=== PATIENT | female | born 1955 | race Two or more races ===

== ENCOUNTER 2025-04-21 09:06 | Inpatient (IN) | payer OTHER ==
[~2025-04-21] VITALS: Ht 165.1 cm; Wt 53.4 kg
--- NOTE | 2025-04-21 10:46 | ED.PDOC ---
History of Present Illness HPI Comments 69-year-old female presents to the ER with a chief complaint of abdominal pain. Patient reports on having pressure-like abdominal pain associated with the abdominal distention for the past two months. Patient's PCP for GI is Dr. Malone. Denies any other symptoms at this time. Denies chills, fever, N/V/D, SOB, CP. No other associated symptoms, modifiers, recent injuries or sick contacts present at this time. Chief Complaint: Abdominal Pain Time Seen by MD: 10:30 Reviewed Notes: Nurses Notes, Medications, Allergies Allergies: Uncoded Allergies: SULFA (Allergy, Unknown, 04/21/25) Home Meds Reported Medications Ursodiol (Ursodiol) 300 Mg Cap, 300 MG PO, CAP 04/22/25 Mesalamine (Apriso) 0.375 Gm Cap, 4 CAP PO DAILY, #120 CAP 3 Refills 04/22/25 Information Source: Patient Mode of Arrival: Ambulatory Severity: Moderate Timing: Months Duration: Since onset Prehospital treatment: None Past Medical History Past Medical History (Other): Ulcerative Colitis Surgical History: Denies all surgeries FLOUR WORKER History: No Pertinent FLOUR WORKER History Family History Family History: Reviewed,noncontributory to illness, Unknown Social History Smoker: Non-Smoker Alcohol: Denies ETOH Use Drugs: Denies Drug Use Lives In: Home Constitutional: denies: chills, diaphoresis, fatigue, fever, malaise, sweats, weakness, others EENTM: denies: blurred vision, double vision, ear bleeding, ear discharge, ear drainage, ear pain, ear ringing, eye pain, eye redness, hearing loss, mouth pain, mouth swelling, nasal discharge, nose bleeding, nose congestion, nose pain, photophobia, tearing, throat pain, throat swelling, voice changes, others Respiratory: denies: cough, hemoptysis, orthopnea, SOB at rest, shortness of breath, SOB with excertion, stridor, wheezing, others Cardiovascular: denies: chest pain, dizzy spells, diaphoresis, Dyspnea on exertion, edema, irregular heart beat, left arm pain, lightheadedness, palpitations, PND, syncope, others Gastrointestinal: reports: abdomen distended, abdominal pain; denies: blood streaked bowels, constipated, diarrhea, dysphagia, difficulty swallowing, hematemesis, melena, nausea, poor appetite, poor fluid intake, rectal bleeding, rectal pain, vomiting, others Genitourinary: denies: abnormal vagina bleeding, burning, dyspareunia, dysuria, flank pain, frequency, hematuria, incontinence, pain, , vagina discharge, urgency, others Neurological: denies: dizziness, fainting, headache, left sided numbness, left sided weakness, numbness, paresthesia, pre-existing deficit, right sided numbness, right sided weakness, seizure, speech problems, tingling, tremors, weakness, others Musculoskeletal: denies: back pain, gout, joint pain, joint swelling, muscle pain, muscle stiffness, neck pain, others Integumetry: denies: bruises, change in color, change in hair/nails, dryness, laceration, lesions, lumps, rash, wounds, others Allergic/Immunocompromised: denies: Difficulty Healing, Frequent Infections, Hives, Itching, others Hematologic/Lymphatic: denies: anemia, blood clots, easy bleeding, easy bruising, swollen glands, others Endocrine: denies: excessive hunger, excessive sweating, excessive thirst, excessive urination, flushing, intolerance to cold, intolerance to heat, unexplained weight gain, unexplained weight loss, others Psychiatric: denies: anxiety, bipolar disorder, depression, hopeless, panic disorder, schizophrenia, sleepless, suicidal, others All Other Systems: Reviewed and Negative Physical Exam General Appearance: No Apparent Distress, Normal HEENT: Normal ENT Inspection, Pharynx Normal, TMs Normal Neck: Full Range of Motion, Non-Tender, Normal, Normal Inspection Respiratory: Chest Non-Tender, Lungs Clear, No Accessory Muscle Use, No Respiratory Distress, Normal Breath Sounds Cardiovascular: No Edema, No JVD, No Murmur, No Gallop, Normal Peripheral Pulses, Regular Rate/Rhythm Breast Exam: Deferred Gastrointestinal: Diffuse, Distended, No Pulsatile Mass, Normal Bowel Sounds, Soft Genitalia: Deferred Pelvic: Deferred Rectal: Deferred Extremities: No calf tenderness, Normal capillary refill, Normal inspection, Normal range of motion, Non-tender, No pedal edema Musculoskeletal : Apperance: Normal Neurologic: Alert, data services developer II-XII nml as Tested, No Motor Deficits, Normal Affect, Normal Mood, No Sensory Deficits Cerebellar Function: Normal Reflexes: Normal Skin: Dry, Normal Color, Warm Lymphatic: No Adenopathy Was a procedure done? Was a procedure done?: No Differential Dx Considerations may include: ACS, CVA, gastritis, colitis, gastroenteritis X-Ray, Labs, Meds, VS Vital Signs Date Time Temp Pulse Resp B/P (MAP) Pulse Ox O2 Delivery O2 Flow Rate FiO2 04/21/25 14:00 65 18 124/82 04/21/25 13:37 97.5 65 16 124/82 (96) 100 97.5 04/21/25 09:25 61 04/21/25 09:08 97.4 67 18 135/90 100 97.4 Lab Test 04/21/25 13:06 04/21/25 10:57 Range/Units Urine Color Dark-orange Yellow Urine Clarity Turbid H Clear Urine pH 6.0 5.0-9.0 Urine Specific [place] 1.025 1.001-1.035 Urine Protein 1+ H Negative Urine Ketones Negative Negative Urine Blood Negative Negative /uL Urine Nitrite 2+ H Negative Urine Bilirubin 3+ H Negative Urine Urobilinogen 3 H Negative mg/dL Urine Leukocyte Esterase 1+ Negative /uL Urine RBC 23 0 - 4 /hpf Urine Microscopic WBC 21 H 0-5 /HPF Urine Squamous Epithelial Cells Few <5 /hpf Urine Bacteria None seen None Seen /hpf Urine Mucus Many None Seen Urine Glucose Normal Normal mg/dL White Blood Count 4.3 L 4.4-10.8 10^3/uL Red Blood Count 3.89 L 4.0-5.20 10^6/uL Hemoglobin 12.7 12.2-16.2 g/dL Hematocrit 36.8 36.0-46.0 % Mean Corpuscular Volume 94.7 80.0-100.0 fL Mean Corpuscular Hemoglobin 32.6 H 28.0-32.0 pg Mean Corpuscular Hemoglobin Concent 34.4 32.0-36.0 g/dL Red Cell Distribution Width 14.1 11.8-14.3 % Platelet Count 191 140-450 10^3/uL Mean Platelet Volume 8.5 6.9-10.8 fL Neutrophils (%) (Auto) 65.6 37.0-80.0 % Lymphocytes (%) (Auto) 24.0 10.0-50.0 % Monocytes (%) (Auto) 6.5 0.0-12.0 % Eosinophils (%) (Auto) 2.5 0.0-7.0 % Basophils (%) (Auto) 1.4 0.0-2.0 % Neutrophils # (Auto) 2.8 1.6-8.6 10 ^3/uL Lymphocytes # (Auto) 1.0 0.4-5.4 10 ^3/uL Monocytes # (Auto) 0.3 0-1.3 10 ^3/uL Eosinophils # (Auto) 0.1 0-0.8 10 ^3/uL Basophils # (Auto) 0.1 0-0.2 10 ^3/uL Nucleated Red Blood Cells 0.1 % Sodium Level 137 136-145 mmol/L Potassium Level 3.5 3.5-5.1 mmol/L Chloride Level 104 98-107 mmol/L Carbon Dioxide Level 24 20-31 mmol/L Anion Gap 9 5-15 Blood Urea Nitrogen < 5 L 9-23 mg/dL Creatinine 0.60 0.550-1.02 mg/dL Glomerular Filtration Rate Calc 98 >90 mL/min BUN/Creatinine Ratio 8.3 L 10.0-20.0 Serum Glucose 84 74-106 mg/dL Lactic Acid Level 1.0 0.4-2.0 mmol/L Calcium Level 8.6 L 8.7-10.4 mg/dL Total Bilirubin 9.8 H 0.2-1.0 mg/dL Aspartate Amino Transferase (AST) 170 H 13-40 U/L Alanine Aminotransferase (ALT) 90 H 7-40 U/L Alkaline Phosphatase 200 H 46-116 U/L Total Protein 8.3 H 5.7-8.2 g/dL Albumin 3.0 L 3.2-4.8 g/dL Lipase 53 12-53 U/L Anti-Nuclear Antibody Screen Pending Hepatitis A Antibody Total Pending Hepatitis B Surface Antigen Pending Hepatitis B Surface Antibody Pending Hepatitis B Core Total Antibody Pending Hepatitis C Antibody Pending Current Medications Medications (Trade) Dose Ordered Sig/Elmer Route Start Time Stop Time Status Last Admin Sodium Chloride 1,000 ml @ 1,000 mls/hr Q1H ONCE IV 04/21/25 11:00 04/21/25 11:59 DC 04/21/25 14:00 Morphine Sulfate 4 mg ONCE ONCE IV 04/21/25 11:00 04/21/25 11:01 DC 04/21/25 14:00 Ondansetron HCl (Zofran) 4 mg ONCE ONCE IV 04/21/25 11:00 04/21/25 11:01 DC 04/21/25 13:59 Time of 1ST Reevaluation: 11:00 Reevaluation 1ST: Unchanged Patient Education/Counseling: Diagnosis, Treatment, Prognosis Family Education/Counseling: No Family Present SEPSIS Sepsis Screen Date sepsis recognized/suspect: Apr 21, 2025 Time Sepsis recognized/suspect: 09 Recent Procedure: No On Antibiotic Therapy: No Respiratory Rate >20: No Heart Rate >90: No Temp<36 C (96.8 F) or >38.3 C: No SBP <90 or MAP <65 mmHG: No New Acute Mental Status Change: No Is the patient on CPAP, BIPAP,: No Physician Orders Ct Ab Pel With Iv Con Only (04/21/25 10:47) Blood Culture (04/21/25 10:47) Vital Signs Date Time Temp Pulse Resp B/P (MAP) Pulse Ox O2 Delivery O2 Flow Rate FiO2 04/21/25 14:00 65 18 124/82 04/21/25 13:37 97.5 65 16 124/82 (96) 100 97.5 04/21/25 09:25 61 04/21/25 09:08 97.4 67 18 135/90 100 97.4 Laboratory Tests Test 04/21/25 10:57 Lactic Acid Level 1.0 mmol/L (0.4-2.0) White Blood Count 4.3 10^3/uL (4.4-10.8) L Departure 1 Departure Time of Disposition: 07:19 (Patient presented with abdominal pain that was concerning for possible appendicits, gastritis, cholecystitis, colitis, gastroenteritis, sbo, or orther possible surgical emergency. Data: 1. I ordered and reviewed the result of at least 3 labs including a CBC, BMP, and Urinalysis. 2. I independently interpreted the following tests: CT Abdomen and Pelvis is concerning for liver failure possibly primary sclerosing cholangitis .Risk:This patient has a high risk of morbidity due to further diagnostic testing or treatment and may suffer from an acute abdominal process disorder. Workup reveals intractable abdominal pain and suspected liver failure and patient should be admitted for further workup. and possible expert consultation. ) Impression: Primary Impression: Intractable abdominal pain Additional Impression: Liver failure Disposition: ADMITTED INPATIENT Admit to: Tele Condition: Guarded Critical Care Note Critical Care Time?: Yes Critical care comment: Intractable abdominal pain Authorized and Performed by: To Pollard MD Total critical care time: Approximately 39 minutes Due to a high probability of clinically significant, life threatening deterioration, the patient required my highest level of preparedness to interven e emergently and I personally spent this critical care time directly and personally managing the patient. This critical care time included obtaining a history; examining the patient; pulse oximetry; ordering and review of studies; arranging urgent treatment with development of a management plan; evaluation of patient's response to treatment; frequent reassessment; and, discussions with other providers. This critical care time was performed to assess and manage the high probability of imminent, life-threatening deterioration that could result in multi-organ failure. It was exclusive of separately billable procedures and treating other patients and teaching time. Please see my other sections and the rest of the note for further information on patient assessment and treatment. Stability Stability form required: No I personally scribed for TO POLLARD MD ([email or web address]) on 04/21/25 at 10:46. Electronically submitted by Prince Palmer ([email or web address]). I personally scribed for TO POLLARD MD ([email or web address]) on 04/21/25 at 10:49. Electronically submitted by Prince Palmer ([email or web address]). TO POLLARD MD Apr 21, 2025 10:46
[2025-04-21 11:18] LABS: Hematocrit 36.8 % (36.0-46.0); Hemoglobin 12.7 g/dL (12.2-16.2); Mean Corpuscular Hemoglobin 32.6 pg (28.0-32.0); Mean Corpuscular Volume 94.7 fL (80.0-100.0); Nucleated Red Blood Cells % 0.1 %
[2025-04-21 11:33] LABS: Anion Gap 9 (5-15); Carbon Dioxide 24 mmol/L (20-31); Chloride 104 mmol/L (98-107); Glucose 84 mg/dL (74-106); Lipase 53 U/L (12-53); Sodium 137 mmol/L (136-145)
[2025-04-21 11:35] LABS: Alanine Aminotransferase 90 U/L (7-40); Albumin 3.0 g/dL (3.2-4.8); Alkaline Phosphatase 200 U/L (46-116); BUN/Creatinine Ratio 8.3 (10.0-20.0); Bilirubin, Total 9.8 mg/dL (0.2-1.0); Blood Urea Nitrogen < 5 mg/dL (9-23); Calcium 8.6 mg/dL (8.7-10.4); Potassium 3.5 mmol/L (3.5-5.1); Total Protein 8.3 g/dL (5.7-8.2)
[2025-04-21 13:46] LABS: Urine Protein, UAD 1+ (Negative)
[2025-04-21] MEDS: ONDANSETRON HCL 4 MG/2 ML VIAL IV ONE (13:59)
[2025-04-21] MEDS: MORPHINE SULFATE 4 MG/ML SYR/VIAL IV ONE (14:00)
[2025-04-21] MEDS: SODIUM CHLORIDE 0.9% 1,000 ML IV ONE (14:00)
[2025-04-21] MEDS: IOHEXOL 300 MG/ML 100ML BOTTLE IJ ONE (14:00)
--- NOTE | 2025-04-21 14:19 | DVH ---
EXAM: CT CT AB PEL WITH IV CON ONLY History: abdominal pain Comparison Study: None Exam Date: 04/21/2025 01:19 PM Radiation Dose Information: CT Dose: CTDI volume is 5.76 mGy. Dose-length product is 322.76 mGy*cm TECHNIQUE: During the uneventful, intravenous administration of contrast material, multislice data acquisition was obtained through the abdomen and pelvis. The data set was subsequently reconstructed into axial images. Images were reviewed on a work station using a combination of axial and multiplanar using a variety of window levels and settings. FINDINGS: Lower chest: Clear. Liver: Questionable nodular contour. Small subcentimeter hypodense lesions in the right hepatic lobe, too small to characterize. Biliary system: Surgically absent gallbladder with mildly dilated bile ducts, likely related to postcholecystectomy state. Mild pneumobilia. Spleen: Mildly enlarged Pancreas: Unremarkable. Adrenals: Unremarkable. Kidneys and ureters: Normal renal enhancement. No hydronephrosis Bowel: Borderline dilated loops of small bowel in the right lower quadrant measuring up to 2.2 cm. Bladder: Unremarkable Reproductive organs: No abnormal mass. Lymph nodes: Unremarkable. Peritoneum: Large volume ascites. Vessels: Patent major intra-abdominal vasculature. Bones and soft tissue: No aggressive osseous lesion. Grade 1 anterolisthesis of L3 on L4. IMPRESSION: Cholecystectomy with mildly dilated common bile duct and pneumobilia likely related to cholecystectomy reservoir effect. Correlate with laboratory analysis to assess for possible biliary obstruction. Probable cirrhotic liver morphology with large volume ascites and splenomegaly. Subcentimeter hypodense lesions in the liver, too small to characterize. Borderline dilated loops of small bowel in the right lower quadrant. This could represent ileus although early bowel obstruction is possible. Recommend close follow-up.
--- NOTE | 2025-04-21 18:09 | DVH ---
ULTRASOUND ABDOMEN: REASON FOR EXAM: ascites check TECHNIQUE: Real-time sector scans in the transverse and longitudinal planes were obtained through all 4 quadrants of the abdomen. FINDINGS: There is a small to moderate amount of ascites in the abdomen, greatest in the right and left lower quadrants. IMPRESSION: Small to moderate ascites, greatest in the lower abdomen.
[2025-04-21] MEDS: PIPERACILLIN-TAZOB 3.375GM 100 ML IV ONE (18:18)
--- NOTE | 2025-04-21 18:38 | ECG ---
[facility] Test Date: 2025-04-21 Test Time: 09:22:33 Pat Name: OMAIRA SEAY Department: Room: 0290T Gender: F Mechanic'S Assistant: CORY : 1955 Requested By: TO CRUZ Order Number: [id number] Reading MD: Rolando Yu Measurements Intervals [place] Rate: 61 P: 44 ND: 159 QRS: -35 QRSD: 107 T: 14 QT: 420 QTc: 423 Interpretive Statements Sinus rhythm Left axis deviation Consider anterior infarct Baseline wander in lead(s) V6 Electronically Signed On 04-22-2025 20:09:24 PST by Rolando Yu Please click the below link to view image of tracing.
--- NOTE | 2025-04-21 19:40 | DVHHP2 ---
History of Present Illness History of Present Illness This is a 69-year-old female with past medical history of ulcerative colitis diagnosed three years ago, also found to have primary sclerosing cholangitis within the same period. She reports chronic abdominal distention and generalized abdominal pain, which worsened before arrival. She states she has intermittent blood in the stool but is a poor historian and unable to provide reliable detail. She only takes mesalamine at home, and medication reconciliation could not be completed. No nausea or vomiting were reported, but history is unreliable. PMH Ulcerative colitis Primary sclerosing cholangitis PSH Cholecystectomy Allergies Sulfas Social History No smoking, no alcohol, no drugs. ROS General: No fevers. GI: Distention and generalized pain; intermittent hematochezia per patient. : No dysuria reported. Resp: No dyspnea reported. Neuro: No confusion per report. Labs CBC: WBC 4.3, Hgb 12.7, Plt 191 CMP: Ca 8.6, bilirubin 9.8, AST 170, ALT 90, ALP 200, albumin 3 UA: Nitrites positive, protein positive, bilirubin positive, urobilinogen positive Others: PT/PTT pending, ammonia pending Imaging CT Abd/Pelvis: Cirrhotic-appearing liver, status-post cholecystectomy, mild CBD dilation (likely reservoir effect), small hepatic cysts, ascites, borderline dilated small-bowel loops suggestive of ileus vs early SBO. Review of Systems Allergies: Uncoded Allergies: SULFA (Allergy, Unknown, 04/21/25) Medications Current Medications Medications Dose Ordered Sig/Elmer Route Start Time Stop Time Status Last Admin Dose Admin Piperacillin Sod/ Tazobactam Sod 100 ml @ 25 mls/hr Q8HR IV 04/21/25 22:00 Mesalamine 800 mg TID PO 04/21/25 22:00 Sodium Chloride 1,000 ml @ 60 mls/hr [id number] IV 04/21/25 17:45 Exam Vital Signs Vital Signs Date Time Temp Pulse Resp B/P (MAP) Pulse Ox O2 Delivery O2 Flow Rate FiO2 04/21/25 18:10 65 18 124/82 04/21/25 17:30 97.3 99 97.3 Exam General: Pleasant elderly woman, no acute distress. Skin: Jaundiced. CV: RRR. Pulm: Clear to auscultation bilaterally. Abdomen: Distended, ascites present, generalized tenderness without guarding. Extremities: No edema noted. Neuro: Alert and oriented, non-focal. Labs/Xrays Labs Test 04/21/25 13:06 04/21/25 10:57 Range/Units Urine Color Dark-orange Yellow Urine Clarity Turbid H Clear Urine pH 6.0 5.0-9.0 Urine Specific [place] 1.025 1.001-1.035 Urine Protein 1+ H Negative Urine Ketones Negative Negative Urine Blood Negative Negative /uL Urine Nitrite 2+ H Negative Urine Bilirubin 3+ H Negative Urine Urobilinogen 3 H Negative mg/dL Urine Leukocyte Esterase 1+ Negative /uL Urine RBC 23 0 - 4 /hpf Urine Microscopic WBC 21 H 0-5 /HPF Urine Squamous Epithelial Cells Few <5 /hpf Urine Bacteria None seen None Seen /hpf Urine Mucus Many None Seen Urine Glucose Normal Normal mg/dL White Blood Count 4.3 L 4.4-10.8 10^3/uL Red Blood Count 3.89 L 4.0-5.20 10^6/uL Hemoglobin 12.7 12.2-16.2 g/dL Hematocrit 36.8 36.0-46.0 % Mean Corpuscular Volume 94.7 80.0-100.0 fL Mean Corpuscular Hemoglobin 32.6 H 28.0-32.0 pg Mean Corpuscular Hemoglobin Concent 34.4 32.0-36.0 g/dL Red Cell Distribution Width 14.1 11.8-14.3 % Platelet Count 191 140-450 10^3/uL Mean Platelet Volume 8.5 6.9-10.8 fL Neutrophils (%) (Auto) 65.6 37.0-80.0 % Lymphocytes (%) (Auto) 24.0 10.0-50.0 % Monocytes (%) (Auto) 6.5 0.0-12.0 % Eosinophils (%) (Auto) 2.5 0.0-7.0 % Basophils (%) (Auto) 1.4 0.0-2.0 % Neutrophils # (Auto) 2.8 1.6-8.6 10 ^3/uL Lymphocytes # (Auto) 1.0 0.4-5.4 10 ^3/uL Monocytes # (Auto) 0.3 0-1.3 10 ^3/uL Eosinophils # (Auto) 0.1 0-0.8 10 ^3/uL Basophils # (Auto) 0.1 0-0.2 10 ^3/uL Nucleated Red Blood Cells 0.1 % Sodium Level 137 136-145 mmol/L Potassium Level 3.5 3.5-5.1 mmol/L Chloride Level 104 98-107 mmol/L Carbon Dioxide Level 24 20-31 mmol/L Anion Gap 9 5-15 Blood Urea Nitrogen < 5 L 9-23 mg/dL Creatinine 0.60 0.550-1.02 mg/dL Glomerular Filtration Rate Calc 98 >90 mL/min BUN/Creatinine Ratio 8.3 L 10.0-20.0 Serum Glucose 84 74-106 mg/dL Lactic Acid Level 1.0 0.4-2.0 mmol/L Calcium Level 8.6 L 8.7-10.4 mg/dL Total Bilirubin 9.8 H 0.2-1.0 mg/dL Aspartate Amino Transferase (AST) 170 H 13-40 U/L Alanine Aminotransferase (ALT) 90 H 7-40 U/L Alkaline Phosphatase 200 H 46-116 U/L Total Protein 8.3 H 5.7-8.2 g/dL Albumin 3.0 L 3.2-4.8 g/dL Lipase 53 12-53 U/L SEPSIS Sepsis Screen Date sepsis recognized/suspect: Apr 21, 2025 Time Sepsis recognized/suspect: 09 Recent Procedure: No On Antibiotic Therapy: No Respiratory Rate >20: No Heart Rate >90: No Temp<36 C (96.8 F) or >38.3 C: No SBP <90 or MAP <65 mmHG: No New Acute Mental Status Change: No Is the patient on CPAP, BIPAP,: No Physician Orders Admit (04/21/25 17:20) Oxygen By Nasal Cannula (04/21/25 17:20) Stat Ekg For Chest Pain (04/21/25 17:20) Notify Md Of Changes From Base (04/21/25 17:20) Director Business Management For 24 Hours (04/21/25 17:20) Emergency Dysrhythmia Protocol (04/21/25 17:20) Rhythm Strips Once Every Shift (04/21/25 17:20) Piperacillin-Tazob 3.375gm (Zosyn 3.375g (04/21/25 22:00) Mesalamine Dr Capsule (Delzicol Delayed (04/21/25 22:00) Sodium Chloride 0.9% (04/21/25 17:45) Abdomen Limited (04/21/25 17:41) Mrcp Mri (04/21/25 17:41) * [facility] [facility] Assistant (04/21/25 17:41) Npo After Midnight (04/21/25 18:10) Npo (Nothing By Mouth) Diet (04/22/25 Breakfast) Paracentesis (04/21/25 19:40) Vital Signs Date Time Temp Pulse Resp B/P (MAP) Pulse Ox O2 Delivery O2 Flow Rate FiO2 04/21/25 18:10 65 18 124/82 04/21/25 17:30 97.3 56 14 123/74 (90) 99 97.3 04/21/25 14:00 65 18 124/82 04/21/25 13:37 97.5 65 16 124/82 (96) 100 97.5 Laboratory Tests Test 04/21/25 10:57 Lactic Acid Level 1.0 mmol/L (0.4-2.0) White Blood Count 4.3 10^3/uL (4.4-10.8) L Medications Medications Dose Ordered Sig/Elmer Route Start Time Stop Time Status Last Admin Dose Admin Morphine Sulfate 4 mg ONCE ONCE IV 04/21/25 11:00 04/21/25 11:01 DC 04/21/25 14:00 4 MG Ondansetron HCl 4 mg ONCE ONCE IV 04/21/25 11:00 04/21/25 11:01 DC 04/21/25 13:59 4 MG Piperacillin Sod/ Tazobactam Sod 100 ml @ 100 mls/hr ONCE ONCE IV 04/21/25 18:00 04/21/25 18:59 DC 04/21/25 18:18 100 MLS/HR Sodium Chloride 1,000 ml @ 1,000 mls/hr Q1H ONCE IV 04/21/25 11:00 04/21/25 11:59 DC 04/21/25 14:00 1,000 MLS/HR Assessment/Plan Assessment/Plan #Possible acute cholangitis #Primary sclerosing cholangitis PSC likely contributes to her cholestatic pattern and elevated bilirubin. MRCP is essential to evaluate for strictures or progression. Continue GI involvement, trend LFTs, obtain MRCP, and consider ERCP if obstruction or dominant stricture identified. Zosyn and IV fluids # Ulcerative colitis Chronic condition with possible flare given worsening abdominal distention and discomfort. Her baseline therapy is limited to mesalamine, and poor history limits assessment of severity. Continue mesalamine, initiate GI consultation guidance, maintain bowel rest until obstruction excluded, monitor stool output. #Rule out acute liver failure # Liver cirrhosis CT appearance and hyperbilirubinemia are strongly suggestive of cirrhosis likely related to PSC. Requires ascites evaluation and screening for complications. Perform diagnostic paracentesis, trend INR/albumin, and monitor for encephalopathy. # Ascites Visible on exam and CT, likely secondary to chronic liver disease. Requires evaluation for infection and degree of decompensation. Perform diagnostic pa racentesis with cell count, culture, protein, start albumin if needed, and adjust fluids if third-spacing increases. # Ileus CT suggests borderline dilation of small-bowel loops consistent with ileus. Likely secondary to inflammation, cirrhosis-related edema, or metabolic derangements. Clear liquids until midnight, continue IV fluids, correct electrolytes, and repeat abdominal imaging if symptoms worsen. # Acute cystitis UA with nitrites and protein strongly suggests infection despite absent symptoms, common in elderly and poor historians. Requires treatment given risk of ascending infection. Start zosyn # Hyperbilirubinemia Likely multifactorial from PSC and cirrhosis with possible component of cholestasis. Needs imaging and liver function monitoring. Follow bilirubin trend, obtain MRCP, and escalate to ERCP if biliary obstruction suspected. Case discussed with Dr Kinsey Full code Plan discussed with: Patient, Other (rn) My Orders Orders - KAYLAN ESPA[place]A RESIDENT Procedure Category Date Status Time Admit ADMIT 04/21/25 Transmitted 17:20 Oxygen By Nasal RT 04/21/25 Transmitted Cannula 17:20 Stat Ekg For Chest JIMMY 04/21/25 In Process Pain 17:20 Notify Of Changes [facility] 04/21/25 In Process From Base 17:20 Director Business Management For JIMMY 04/21/25 In Process 24 Hours 17:20 Emergency Dysrhythmia JIMMY 04/21/25 In Process Protocol 17:20 Rhythm Strips Once JIMMY 04/21/25 In Process Every Shift 17:20 Piperacillin-Tazob PHA 04/21/25 In Process 3.375gm (Zosyn 3.375g 22:[address] Capsule PHA 04/21/25 In Process (Delzicol Delayed 22:00 Sodium Chloride 0.9% PHA 04/21/25 In Process 17:45 Abdomen Limited US 04/21/25 Resulted 17:41 Mrcp Mri MRI 04/21/25 Logged 17:41 * [facility] [facility] [employer] [facility] Assistant CONS 04/21/25 Transmitted 17:41 Npo After Midnight JIMMY 04/21/25 In Process 18:10 Npo (Nothing By DIET 04/22/25 Transmitted Mouth) Diet Breakfast Paracentesis US 04/21/25 Verified 19:40 Date of Service: Apr 21, 2025 Billing Provider: BERTRAM KINSEY MD Common Visit Codes: 79436-[id number] INP/OBS CARE (HIGH) Secondary Visit Codes: 78742-[id number] CARE PLAN 30 MINUTES KAYLAN ESPAÑA RESIDENT Apr 21, 2025 19:40
[2025-04-21] MEDS: SODIUM CHLORIDE 0.9% 1,000 ML IV SCH (20:11)
[2025-04-21] MEDS: PIPERACILLIN-TAZOB 3.375GM 100 ML IV SCH (22:00)
[2025-04-21] MEDS: MESALAMINE 400mg Delayed Release Cap PO SCH (22:35)
[2025-04-22] VITALS (8 sets, daily range): BP systolic 114–138; BP diastolic 58–83; PULSE 63–81; RESP 16–18; TEMP 97.6–98.2; O2SAT 97–100
[2025-04-22] MEDS ORDERED: URSO300C2 PO (03:59)
[2025-04-22] MEDS ORDERED: MESA0.37 PO (03:59)
[2025-04-22 06:38] LABS: Hematocrit 33.3 % (36.0-46.0); Hemoglobin 11.8 g/dL (12.2-16.2); Mean Corpuscular Hemoglobin 33.4 pg (28.0-32.0); Mean Corpuscular Volume 94.6 fL (80.0-100.0); Nucleated Red Blood Cells % 0.3 %
[2025-04-22 06:48] LABS: INR 1.26 (0.9-1.15); Partial Thromboplastin Time 33.9 SEC (24.5-34.5); Prothrombin Time 13.1 sec (9.3-11.8)
[2025-04-22 06:49] LABS: Anion Gap 8 (5-15); Carbon Dioxide 24 mmol/L (20-31); Chloride 106 mmol/L (98-107); Glucose 97 mg/dL (74-106); Magnesium 2.0 mg/dL (1.6-2.6); Potassium 3.7 mmol/L (3.5-5.1); Sodium 138 mmol/L (136-145); Total Protein 7.9 g/dL (5.7-8.2); Triglycerides 108 mg/dL (< 150)
[2025-04-22 06:50] LABS: Cholesterol 152 mg/dL (< 200)
[2025-04-22 06:53] LABS: Alanine Aminotransferase 93 U/L (7-40); Albumin 2.8 g/dL (3.2-4.8); Alkaline Phosphatase 190 U/L (46-116); BUN/Creatinine Ratio 8.1 (10.0-20.0); Bilirubin, Total 9.3 mg/dL (0.2-1.0); Blood Urea Nitrogen < 5 mg/dL (9-23); Calcium 8.6 mg/dL (8.7-10.4); HDL Cholesterol 12 mg/dL (40-59)
[2025-04-22 07:49] LABS: Lipase 47 U/L (12-53)
--- NOTE | 2025-04-22 09:37 | DVH ---
CLINICAL HISTORY: rule out biliary obstruction TECHNIQUE: MRI and MRCP of the abdomen was performed without gadolinium. 3D reconstructed images were created under concurrent radiologist supervision and archived on the PACS system. COMPARISON: None FINDINGS: The kidneys, adrenal glands, and pancreas are unremarkable. The liver is slightly nodular in contour. A 1.4 cm T2 hyperintense lesion within the right hepatic lobe is incompletely characterized due to lack of IV contrast. The gallbladder is absent. The spleen is significantly enlarged, measuring 17 cm in long axis. The common duct is normal in caliber measuring 4.5 mm. The mid and distal CBD are not well seen with suspected diffuse mid and distal CBD wall thickening. No intraductal filling defects to suggest a stone is seen. The abdominal aorta is normal course and caliber. No enlarged lymph node is seen. There is a large amount of ascites. IMPRESSION: Mid and distal CBD not well seen with suspected diffuse mid and distal CBD wall thickening, not appropriately assessed on this exam. Differential includes benign (infectious versus inflammatory) and malignant processes. Recommend contrast-enhanced MRI for further evaluation. Normal caliber proximal CBD with no intraductal filling defect to suggest stone. Moderate splenomegaly. Slightly nodular liver contour, raising possibility of cirrhosis. Large amount of ascites. 1.4 cm T2 hyperintense right hepatic lobe lesion, not adequately assessed on this exam. Contrast-enhanced MRI can also better evaluate this lesion.
--- NOTE | 2025-04-22 12:14 | DVHCONRES ---
Date Seen: Apr 22, 2025 Resident Creating Document: CARMEN PEDROZA RESIDENT Referring Physician Dr. Scott History of Present Illness Reason of consultation: UC, possible cholangitis Chief complaint: Worsening diarrhea, abdominal distention 69-year-old female presented to the ER with the chief complaint of worsening diarrhea for the past 1 week and abdominal distention for the past 2 months. Patient reports history of ulcerative colitis, takes mesalamine, says that her abdomen has been distended for the past 2 months, and she has been experiencing appetite, early satiety, and her diarrhea worsened for the past week. She is experiencing 6-7 bowel movements every day, her baseline is 2-3 bowel movements, reports spot of red blood when she wipes. She denies fever or chills. Does report abdominal pain which is right-sided. Denies nausea or vomiting. Patient reports having ERCP and colonoscopy in 2023 at [facility] Past medical history: Ulcerative colitis diagnosed 2021, on mesalamine, primary sclerosing cholangitis Past surgical history: Cholecystectomy, ERCP 2023 Patient seen and examined in ER. Abdomen mildly tender in epigastrium. Hypoactive. NPO. MRCP pending. Allergies: Uncoded Allergies: SULFA (Allergy, Unknown, 04/21/25) Home Meds Reported Medications Ursodiol (Ursodiol) 300 Mg Cap, 300 MG PO, CAP 04/22/25 Mesalamine (Apriso) 0.375 Gm Cap, 4 CAP PO DAILY, #120 CAP 3 Refills 04/22/25 Current Medications Current Medications Medications (Trade) Dose Ordered Sig/Elmer Route PRN Reason Start Time Stop Time Status Last Admin Piperacillin Sod/ Tazobactam Sod 100 ml @ 25 mls/hr Q8HR IV 04/21/25 22:00 04/22/25 06:00 Mesalamine (DELZICOL Delayed Release Capsule) 800 mg TID PO 04/21/25 22:00 04/22/25 06:27 Sodium Chloride 1,000 ml @ 60 mls/hr [id number] IV 04/21/25 17:45 04/22/25 10:42 Review of Systems Eyes: No Pain, No Vision change, No Conjunctivae inflammation, No Eyelid inflammation, No Other, No Redness ENT: No Ear pain, No Ear discharge, No Nose pain, No Nose discharge, No Nose congestion, No Mouth pain, No Mouth swelling, No Throat pain, No Throat swelling, No Other Cardiovascular: No Chest Pain, No Palpitations, No Orthopnea, No PND, No Edema, No Lt Headedness, No Other Respiratory: No Cough, No Dry, No Shortness of breath, No SOB with exertion, No Wheezing, No Hemoptysis, No Pleuritic Pain, No Sputum, No Other Gastrointestinal: Reports abdominal pain, diarrhea No Constipation, No Melena, No Hematochezia, No Other Genitourinary: No Dysuria, No Frequency, No Incontinence, No Hematuria, No Retention, No Other Musculoskeletal: No other, No neck pain, No shoulder pain, No arm pain, No back pain, No hand pain, No leg pain, No foot pain Skin: No Rash, No Lesions, No Jaundice, No Bruising, No Other Vital Signs Vital Signs Date Time Temp Pulse Resp B/P (MAP) Pulse Ox O2 Delivery O2 Flow Rate FiO2 04/22/25 08:00 70 04/22/25 08:00 98 Room Air* 0 21 04/22/25 05:00 97.6 18 114/64 (81) 97.6 Physical Exam Patient lying in bed, in no acute distress General: Well-built, afebrile, palor, mucosae are moist Cardiovascular: Regular S1 and S2. No murmurs, gallops or rubs. No JVD elevation. Pedal edema. Respiratory: Decreased bilateral breath sounds heard on auscultation, on room air Abdomen: Soft, mildly tender epigastrium, nondistended, hypoactive bowel sounds, no rebound tenderness, no organomegaly, no masses Genitourinary: Deferred MSK/skin: Mobilizes 4 limbs. Skin is dry and warm Neurological: No motor, no sensitive deficits, normal speech. Pupils are isocoric and reactive. Psych/Mental Status: A/Ox3 Labs/Diagnostic Data Labs Test 04/22/25 05:58 04/21/25 13:06 04/21/25 10:57 Range/Units White Blood Count 4.1 L 4.4-10.8 10^3/uL Red Blood Count 3.52 L 4.0-5.20 10^6/uL Hemoglobin 11.8 L 12.2-16.2 g/dL Hematocrit 33.3 L 36.0-46.0 % Mean Corpuscular Volume 94.6 80.0-100.0 fL Mean Corpuscular Hemoglobin 33.4 H 28.0-32.0 pg Mean Corpuscular Hemoglobin Concent 35.4 32.0-36.0 g/dL Red Cell Distribution Width 14.0 11.8-14.3 % Platelet Count 146 140-450 10^3/uL Mean Platelet Volume 8.6 6.9-10.8 fL Neutrophils (%) (Auto) 74.6 37.0-80.0 % Lymphocytes (%) (Auto) 17.7 10.0-50.0 % Monocytes (%) (Auto) 5.4 0.0-12.0 % Eosinophils (%) (Auto) 1.4 0.0-7.0 % Basophils (%) (Auto) 0.9 0.0-2.0 % Neutrophils # (Auto) 3.1 1.6-8.6 10 ^3/uL Lymphocytes # (Auto) 0.7 0.4-5.4 10 ^3/uL Monocytes # (Auto) 0.2 0-1.3 10 ^3/uL Eosinophils # (Auto) 0.1 0-0.8 10 ^3/uL Basophils # (Auto) 0 0-0.2 10 ^3/uL Nucleated Red Blood Cells 0.3 % Prothrombin Time 13.1 H 9.3-11.8 sec Prothrombin Time INR 1.26 H 0.9-1.15 Activated Partial Thromboplast Time 33.9 24.5-34.5 SEC Sodium Level 138 136-145 mmol/L Potassium Level 3.7 3.5-5.1 mmol/L Chloride Level 106 98-107 mmol/L Carbon Dioxide Level 24 20-31 mmol/L Anion Gap 8 5-15 Blood Urea Nitrogen < 5 L 9-23 mg/dL Creatinine 0.62 0.550-1.02 mg/dL Glomerular Filtration Rate Calc 98 >90 mL/min BUN/Creatinine Ratio 8.1 L 10.0-20.0 Serum Glucose 97 74-106 mg/dL Hemoglobin A1c < 3.8 <5.7 % A1C Lactic Acid Level 0.9 0.4-2.0 mmol/L Calcium Level 8.6 L 8.7-10.4 mg/dL Magnesium Level 2.0 1.6-2.6 mg/dL Total Bilirubin 9.3 H 0.2-1.0 mg/dL Aspartate Amino Transferase (AST) 167 H 13-40 U/L Alanine Aminotransferase (ALT) 93 H 7-40 U/L Alkaline Phosphatase 190 H 46-116 U/L Ammonia < 10 L 11-32 umol/L Total Protein 7.9 5.7-8.2 g/dL Albumin 2.8 L 3.2-4.8 g/dL Triglycerides Level 108 < 150 mg/dL Cholesterol Level 152 < 200 mg/dL LDL Cholesterol 88 < 100 mg/dL HDL Cholesterol 12 L 40-59 mg/dL Lipase 47 12-53 U/L Vitamin B12 Level > 4000 H 211-911 pg/mL Vitamin D 25-Hydroxy 29.1 L 30.0-100 ng/mL Thyroid Stimulating Hormone (TSH) 1.94 0.55-4.78 uIU/mL Urine Color Dark-orange Yellow Urine Clarity Turbid H Clear Urine pH 6.0 5.0-9.0 Urine Specific [place] 1.025 1.001-1.035 Urine Protein 1+ H Negative Urine Ketones Negative Negative Urine Blood Negative Negative /uL Urine Nitrite 2+ H Negative Urine Bilirubin 3+ H Negative Urine Urobilinogen 3 H Negative mg/dL Urine Leukocyte Esterase 1+ Negative /uL Urine RBC 23 0 - 4 /hpf Urine Microscopic WBC 21 H 0-5 /HPF Urine Squamous Epithelial Cells Few <5 /hpf Urine Bacteria None seen None Seen /hpf Urine Mucus Many None Seen Urine Glucose Normal Normal mg/dL Microbiology Date/Time Source Procedure Growth Status 04/21/25 11:05 Blood Blood Culture - Preliminary NO GROWTH AFTER 24 HOURS OF INCUBATION. 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 Possible cirrhotic liver, splenomegaly, subcentimeter hypodense lesions liver, early SBO possible given borderline dilated loops of small bowel and right lower quadrant MRCP 04/22 shows mid and distal CBD not well seen with diffuse mid and distal CBD wall thickening, differentials include benign infectious versus inflammatory and malignant process. Recommend MRI. 1.4 cm T2 hyperintense right hepatic lobe lesion Last BM 04/21 Plan: Recommendation: Dr. Moura Given the MRCP findings, patient will benefit from MRI with contrast to rule out biliary obstruction to evaluate right hepatic lobe lesion. Follow up with the [facility] Obtain records from [facility] for recent ERCP 2023 Continue IV antibiotics for possible cholangitis, mesalamine 800 mg PO TID Refer to higher level of care if symptoms and labs do not improve Continue IV Protonix, NPO Follow up with hepatitis panel Follow up with BRENDA panel Prelim blood culture negative Plan discussed with patient in which all questions have been answered Case discussed with Dr. Moura Plan discussed with: Patient CARMEN PEDROZA RESIDENT Apr 22, 2025 12:14
[2025-04-22] MEDS ORDERED: MORPHINE SULFATE 4 MG/ML SYR/VIAL IV PRN (14:15)
[2025-04-22] MEDS: PANTOPRAZOLE 40 MG/10 ML VIAL INJ IV ONE (14:29)
--- NOTE | 2025-04-22 15:56 | DVHPN2 ---
Subjective Patient reports abdominal bloating. Denies any pain. Reviewed: Care Plan, H&P, Labs, Medications Changes from previous H/P or p: No Changes General: Per HPI Objective Vitals Vital Signs Date Time Temp Pulse Resp B/P (MAP) Pulse Ox O2 Delivery O2 Flow Rate FiO2 04/22/25 13:10 98.2 71 16 122/68 (86) 98 98.2 04/22/25 08:00 Room Air* 0 21 Intake/Output Intake and Output 04/22/25 06:59 Intake Total 1100 ml Balance 1100 ml IV Total 1100 ml General Appearance: Alert, Oriented X3, Cooperative, mild distress HEENT: Atraumatic, PERRLA Lungs: Clear to auscultation, Normal air movement Cardiovascular: Normal S1, Normal S2 Abdomen: Normal bowel sounds, Soft, Other (Ascites) Musculoskeletal: Normal sensory function, Normal motor function Skin: Dry, Intact Psych/Mental Status: Mental status NL, Mood NL Medications Current Medications Medications Dose Ordered Sig/Elmer Route Start Time Stop Time Status Last Admin Dose Admin Piperacillin Sod/ Tazobactam Sod 100 ml @ 25 mls/hr Q8HR IV 04/21/25 22:00 04/22/25 14:07 25 MLS/HR Mesalamine 800 mg TID PO 04/21/25 22:00 04/22/25 06:27 800 MG Sodium Chloride 1,000 ml @ 60 mls/hr [id number] IV 04/21/25 17:45 04/22/25 10:42 60 MLS/HR Pantoprazole Sodium 40 mg DAILY IV 04/23/25 10:00 Morphine Sulfate 1 mg Q2HP PRN IV 04/22/25 14:15 Laboratory Results Laboratory Tests 04/22/25 05:58 Chemistry Test 04/22/25 05:58 Albumin 2.8 g/dL (3.2-4.8) L Calcium Level 8.6 mg/dL (8.7-10.4) L Magnesium Level 2.0 mg/dL (1.6-2.6) Total Protein 7.9 g/dL (5.7-8.2) Coagulation Test 04/22/25 05:58 Prothrombin Time 13.1 sec (9.3-11.8) H Prothrombin Time INR 1.26 (0.9-1.15) H Activated Partial Thromboplast Time 33.9 SEC (24.5-34.5) Lipid panel Test 04/22/25 05:58 Cholesterol Level 152 mg/dL (< 200) HDL Cholesterol 12 mg/dL (40-59) L Lipase 47 U/L (12-53) Triglycerides Level 108 mg/dL (< 150) LFT Test 04/22/25 05:58 Alanine Aminotransferase (ALT) 93 U/L (7-40) H Alkaline Phosphatase 190 U/L (46-116) H Aspartate Amino Transferase (AST) 167 U/L (13-40) H Total Bilirubin 9.3 mg/dL (0.2-1.0) H HgA1c, TSH Test 04/22/25 05:58 Hemoglobin A1c < 3.8 % A1C (<5.7) Thyroid Stimulating Hormone (TSH) 1.94 uIU/mL (0.55-4.78) Urinalysis Test 04/21/25 13:06 Urine Color Dark-orange (Yellow) Urine Clarity Turbid (Clear) H Urine pH 6.0 (5.0-9.0) Urine Specific [place] 1.025 (1.001-1.035) Urine Protein 1+ (Negative) H Urine Ketones Negative (Negative) Urine Blood Negative /uL (Negative) Urine Nitrite 2+ (Negative) H Urine Bilirubin 3+ (Negative) H Urine Urobilinogen 3 mg/dL (Negative) H Urine Leukocyte Esterase 1+ /uL (Negative) Urine RBC 23 /hpf (0 - 4) Urine Microscopic WBC 21 /HPF (0-5) H Urine Squamous Epithelial Cells Few /hpf (<5) Urine Bacteria None seen /hpf (None Seen) Urine Mucus Many (None Seen) Urine Glucose Normal mg/dL (Normal) Microbiology Microbiology Date/Time Source Procedure Growth Status 04/21/25 11:05 Blood Blood Culture - Preliminary NO GROWTH AFTER 24 HOURS OF INCUBATION. Resulted Labs and/or images reviewed: Labs reviewed by me, Image(s) reviewed by me Assessment/Plan Assessment/Plan Impression: -ascites -? Cirrhosis. Non alcoholic liver disease -history of ulcerative colitis -severe protein malnutrition -cachexia Plan: -ESR, CRP elevated, questionable ulcerative colitis flare -continue mesalamine -obtain medical records from [facility] -discussion made with the patient regarding medical history. Apparently she sees a cost clerk at [place] and is on ursodiol with a past one year -MRCP reviewed -start oral intake -IR consultation for paracentesis -repeat labs in a.m. Total time spent with patient discussing and formulating plan of care: 35 minutes. This medical document was created using an electronic medical record system with [employer] dictation system. Although this document has been carefully reviewed, there may still be some phonetic and typographical errors. These areas are purely typographical due to imperfections of the software programs, and do not reflect any compromise in the patient's medical care. Plan discussed with: Patient, Other (RN) My Orders Orders - ANGELA JIMÉNEZ NP Procedure Category Date Status Time Comprehensive LAB 04/23/25 Verified Metabolic Panel 04:00 Clear Liq Diet DIET 04/22/25 Transmitted Lunch Morphine Sulfate PHA 04/22/25 In Process Injection 14:15 Hepatic Diet DIET 04/22/25 Transmitted (50gmpro,2gmna) Dinner Spironolactone PHA 04/23/25 Transmitted (Aldactone) 10:00 Date of Service: Apr 22, 2025 Billing Provider: ANGELA JIMÉNEZ NP Common Visit Codes: [id number] INP/OBS CARE(HIGH) ANGELA JIMÉNEZ NP Apr 22, 2025 15:56
[2025-04-23] VITALS (7 sets, daily range): BP systolic 105–132; BP diastolic 68–80; PULSE 69–84; RESP 18–19; TEMP 98.2–98.5; O2SAT 100
[2025-04-23 07:05] LABS: Anion Gap 9 (5-15); Carbon Dioxide 23 mmol/L (20-31); Glucose 84 mg/dL (74-106); Potassium 3.6 mmol/L (3.5-5.1); Sodium 140 mmol/L (136-145); Total Protein 6.5 g/dL (5.7-8.2)
[2025-04-23 07:07] LABS: Alanine Aminotransferase 77 U/L (7-40); Albumin 2.3 g/dL (3.2-4.8); Alkaline Phosphatase 159 U/L (46-116); BUN/Creatinine Ratio 9.3 (10.0-20.0); Bilirubin, Total 7.2 mg/dL (0.2-1.0); Blood Urea Nitrogen < 5 mg/dL (9-23); Calcium 8.1 mg/dL (8.7-10.4); Chloride 108 mmol/L (98-107)
[2025-04-23 10:43] LABS: Hepatitis A Total Antibody Positive (Negative)
[2025-04-23 10:44] LABS: Hepatitis B Surface Antigen Negative (Negative); Hepatitis C Antibody Negative (Negative)
--- NOTE | 2025-04-23 10:54 | DVH ---
MRI Abdomen, without and with IV Contrast Exam Date: 04/23/2025 07:41 AM COMPARISON: MRI MRCP MRI on DOS: 04/22/25, US ABDOMEN LIMITED on DOS: 04/21/25 History: Rule out biliary obstruction, TECHNIQUE: Multisequence multiplanar MRI images were obtained of the abomen. Images were obtained without and with intravenous contrast. FINDINGS: Liver: Mildly nodular hepatic contours are suggestive of Hepatic cirrhosis. Right hepatic lobe cyst measures 1.4 cm. Spleen: Splenomegaly. Pancreas: The pancreas is normal in appearance without focal lesions. Gallbladder and ducts: Post cholecystectomy. The cystic duct, right and left hepatic ducts, common hepatic duct, and common bile ducts are unremarkable. The pancreatic duct is within normal limits. Adrenal glands: Unremarkable. Kidneys: Normal enhancement without suspicious lesions or hydronephrosis. Visualized bowel: Moderate volume colonic stool. Vasculature: Gastroesophageal varices are present. Lymphadenopathy: Unchanged retroperitoneal adenopathy. For example, mid abdominal intra aortocaval lymph nodes measures 1.2 cm. Ascites: Moderate ascites. Musculoskeletal: Bone marrow signal is normal. IMPRESSION: Hepatic cirrhosis with sequela of portal hypertension including splenomegaly, moderate ascites, and gastroesophageal varices. Unchanged retroperitoneal lymphadenopathy. Post cholecystectomy. No biliary ductal dilatation.
[2025-04-23] MEDS: PANTOPRAZOLE 40 MG/10 ML VIAL INJ IV SCH (11:07)
[2025-04-23] MEDS: SPIRONOLACTONE 25 MG TAB PO SCH (11:08)
--- NOTE | 2025-04-23 11:08 | DVH ---
ULTRASOUND GUIDED PARACENTESIS HISTORY: 69 years old, Female; ASCITES. COMPARISON: US ABDOMEN LIMITED on DOS: 04/21/25, CT CT AB PEL WITH IV CON ONLY on DOS: 04/21/25 Pre-procedure diagnosis: Ascites Post-procedure diagnosis: Same Complications: No immediate complications. IMPRESSION/PLAN: 1. Successful ultrasound guided paracentesis PROCEDURE DETAILS: Pre-procedure Informed consent for the procedure was obtained and time-out was performed prior to the procedure. Preparation (MIPS): The site was prepared and draped using elements of sterile barrier technique including sterile gloves, sterile ultrasound probe cover, hand hygiene and cutaneous antisepsis with 2% chlorhexidine. Procedure Ultrasound Pre-procedure Findings: Moderate volume ascites Access Location: Right lower quadrant Access catheter: 18G One Step needle/catheter Access technique: Under direct US guidance. Fluid collected with Vacutainer. Total fluid:2650 mL Additional Details Equipment details: None Specimens: No fluid sent for laboratory testing Estimated blood loss: Less than 10 mL
--- NOTE | 2025-04-23 12:04 | DVHPN2 ---
Subjective Denies any symptoms Reviewed: Care Plan, H&P, Labs, Medications Changes from previous H/P or p: No Changes General: Per HPI Objective Vitals Vital Signs Date Time Temp Pulse Resp B/P (MAP) Pulse Ox O2 Delivery O2 Flow Rate FiO2 04/23/25 05:00 98.2 70 18 105/69 (81) 100 98.2 04/22/25 20:00 Room Air* 0 21 Intake/Output Intake and Output 04/23/25 07:00 Intake Total 440 ml Balance 440 ml Intake Oral 240 ml IV Total 200 ml # Voids 4 General Appearance: Alert, Oriented X3, Cooperative, mild distress HEENT: Atraumatic, PERRLA Lungs: Clear to auscultation, Normal air movement Cardiovascular: Normal S1, Normal S2 Abdomen: Normal bowel sounds, Soft, Other (Ascites) Musculoskeletal: Normal sensory function, Normal motor function Skin: Dry, Intact Psych/Mental Status: Mental status NL, Mood NL Medications Current Medications Medications Dose Ordered Sig/Elmer Route Start Time Stop Time Status Last Admin Dose Admin Piperacillin Sod/ Tazobactam Sod 100 ml @ 25 mls/hr Q8HR IV 04/21/25 22:00 04/23/25 06:32 25 MLS/HR Mesalamine 800 mg TID PO 04/21/25 22:00 04/22/25 22:34 800 MG Pantoprazole Sodium 40 mg DAILY IV 04/23/25 10:00 04/23/25 11:07 40 MG Morphine Sulfate 1 mg Q2HP PRN IV 04/22/25 14:15 Spironolactone 25 mg DAILY PO 04/23/25 10:00 04/23/25 11:08 25 MG Laboratory Results Laboratory Tests 04/22/25 05:58 04/23/25 05:30 Chemistry Test 04/23/25 05:30 Albumin 2.3 g/dL (3.2-4.8) L Calcium Level 8.1 mg/dL (8.7-10.4) L Total Protein 6.5 g/dL (5.7-8.2) LFT Test 04/23/25 05:30 Alanine Aminotransferase (ALT) 77 U/L (7-40) H Alkaline Phosphatase 159 U/L (46-116) H Aspartate Amino Transferase (AST) 131 U/L (13-40) H Total Bilirubin 7.2 mg/dL (0.2-1.0) H Urinalysis Test 04/21/25 13:06 Urine Color Dark-orange (Yellow) Urine Clarity Turbid (Clear) H Urine pH 6.0 (5.0-9.0) Urine Specific [place] 1.025 (1.001-1.035) Urine Protein 1+ (Negative) H Urine Ketones Negative (Negative) Urine Blood Negative /uL (Negative) Urine Nitrite 2+ (Negative) H Urine Bilirubin 3+ (Negative) H Urine Urobilinogen 3 mg/dL (Negative) H Urine Leukocyte Esterase 1+ /uL (Negative) Urine RBC 23 /hpf (0 - 4) Urine Microscopic WBC 21 /HPF (0-5) H Urine Squamous Epithelial Cells Few /hpf (<5) Urine Bacteria None seen /hpf (None Seen) Urine Mucus Many (None Seen) Urine Glucose Normal mg/dL (Normal) Microbiology Microbiology Date/Time Source Procedure Growth Status 04/21/25 13:06 Voided Urine Urine Culture - Preliminary Resulted 04/21/25 11:05 Blood Blood Culture - Preliminary NO GROWTH AFTER 48 HOURS OF INCUBATION. Resulted Labs and/or images reviewed: Labs reviewed by me, Image(s) reviewed by me Assessment/Plan Assessment/Plan Impression: -ascites -? Cirrhosis. Non alcoholic liver disease -history of ulcerative colitis -severe protein malnutrition -cachexia -portal hypertension Plan: Events: Patient had 2.3 L removed with paracentesis pending. patient now asymptomatic. -continue mesalamine -obtain medical records from [facility] -discussion made with the patient regarding medical history. Apparently she sees a apartment house manager at [place] and is on ursodiol with a past one year -MRCP reviewed -start oral intake -discussed case with Dr. Orta, GI resident. He states he will follow up with Dr. Moura, but wants to proceed with MRI of the liver Total time spent with patient discussing and formulating plan of care: 35 minutes. This medical document was created using an electronic medical record system with [employer] system. Although this document has been carefully reviewed, there may still be some phonetic and typographical errors. These areas are purely typographical due to imperfections of the software programs, and do not reflect any compromise in the patient's medical care. Plan discussed with: Patient, Other (RN) My Orders Orders - ANGELA JIMÉNEZ NP Procedure Category Date Status Time Morphine Sulfate PHA 04/22/25 In Process Injection 14:15 Hepatic Diet DIET 04/22/25 Transmitted (50gmpro,2gmna) Dinner Spironolactone PHA 04/23/25 In Process (Aldactone) 10:00 Date of Service: Apr 23, 2025 Billing Provider: ANGELA JIMÉNEZ NP Common Visit Codes: [id number] INP/OBS CARE(HIGH) ANGELA JIMÉNEZ NP Apr 23, 2025 12:04
--- NOTE | 2025-04-23 14:40 | DVHPN2 ---
Progress Note Date Seen: Apr 23, 2025 Resident Creating Document: CARMEN PEDROZA RESIDENT Medical Necessity Reason Pt with a Central, PICC or Fol: No Subjective Review of Systems Reason of consultation: UC, possible cholangitis Chief complaint: Worsening diarrhea, abdominal distention 69-year-old female presented to the ER with the chief complaint of worsening diarrhea for the past 1 week and abdominal distention for the past 2 months. Patient reports history of ulcerative colitis, takes mesalamine, says that her abdomen has been distended for the past 2 months, and she has been experiencing appetite, early satiety, and her diarrhea worsened for the past week. She is experiencing 6-7 bowel movements every day, her baseline is 2-3 bowel movements, reports spot of red blood when she wipes. She denies fever or chills. Does report abdominal pain which is right-sided. Denies nausea or vomiting. Patient reports having ERCP and colonoscopy in 2023 at [facility] Past medical history: Ulcerative colitis diagnosed 2021, on mesalamine, primary sclerosing cholangitis Past surgical history: Cholecystectomy, ERCP 04/22 - Patient seen and examined in ER. Abdomen mildly tender in epigastrium. Hypoactive. NPO. MRI pending. 04/23 - Patient seen, last BM saturday. abd normoactiv, s/p para Objective vital signs Vital Sign Date Time Temp Pulse Resp B/P (MAP) Pulse Ox O2 Delivery O2 Flow Rate FiO2 04/23/25 08:05 Room Air* 0 21 04/23/25 08:05 84 04/23/25 05:00 98.2 18 105/69 (81) 100 98.2 Total Intake and Output 04/22/25 04/22/25 04/23/25 15:00 23:00 07:00 Intake Total 0 ml 100 ml 340 ml Balance 0 ml 100 ml 340 ml medications Current Medications Medications Dose Ordered Sig/Elmer Route Start Time Stop Time Status Last Admin Dose Admin Piperacillin Sod/ Tazobactam Sod 100 ml @ 25 mls/hr Q8HR IV 04/21/25 22:00 04/23/25 13:23 25 MLS/HR Mesalamine 800 mg TID PO 04/21/25 22:00 04/23/25 13:22 800 MG Pantoprazole Sodium 40 mg DAILY IV 04/23/25 10:00 04/23/25 11:07 40 MG Morphine Sulfate 1 mg Q2HP PRN IV 04/22/25 14:15 Spironolactone 25 mg DAILY PO 04/23/25 10:00 04/23/25 11:08 25 MG Examination Patient lying in bed, in no acute distress General: Well-built, afebrile, palor, mucosae are moist Cardiovascular: Regular S1 and S2. No murmurs, gallops or rubs. No JVD elevation. Pedal edema. Respiratory: Decreased bilateral breath sounds heard on auscultation, on room air Abdomen: Soft, mildly tender epigastrium, nondistended, normoactiv bowel sounds, no rebound tenderness, no organomegaly, no masses Genitourinary: Deferred MSK/skin: Mobilizes 4 limbs. Skin is dry and warm Neurological: No motor, no sensitive deficits, normal speech. Pupils are isocoric and reactive. Psych/Mental Status: A/Ox3 laboratory and microbiology Laboratory Tests 04/23/25 05:30 04/22/25 05:58 Test 04/23/25 05:30 Range/Units Serum Glucose 84 74-106 mg/dL Microbiology Date/Time Source Procedure Growth Status 04/21/25 13:06 Voided Urine Urine Culture - Preliminary Resulted 04/21/25 11:05 Blood Blood Culture - Preliminary NO GROWTH AFTER 48 HOURS OF INCUBATION. Resulted Labs and/or images reviewed: Labs reviewed by me, Image(s) reviewed by me Problem List/Assessment/Plan Problem List/Assessment/Plan Likely ulcerative colitis flare-up Cirrhosis d/t Primary sclerosing cholangitis Rule out acute cholangitis Liver cyst Cirrhosis secondary to above Ascites s/p para 04/23 Anemia normocytic chronic disease Asymptomatic cystitis Vitamin-D deficiency Severe protein calorie malnutrition Total bilirubin 9.8-9.3 Ammonia less than 10 Alkaline phosphatase 200-190 CT abdomen with IV contrast shows cholecystectomy with mildly dilated CBD and pneumobilia, possible biliary obstruction. Possible cirrhotic liver, splenomegaly, subcentimeter hypodense lesions liver, early SBO possible given borderline dilated loops of small bowel and right lower quadrant MRCP 04/22 shows mid and distal CBD not well seen with diffuse mid and distal CBD wall thickening, differentials include benign infectious versus inflammatory and malignant process. Recommend MRI. 1.4 cm T2 hyperintense right hepatic lobe lesion Last BM 04/21 Plan: Recommendation: Dr. Moura MRI abdomen shows that liver mass is a cyst,Hepatic cirrhosis with sequela of portal hypertension including splenomegaly, moderate ascites, and gastroesophageal varices.Unchanged retroperitoneal lymphadenopathy. IR guided para 2650 ml removed, cloudy yellow, f/u with cytology and labs Obtain records from [facility] for recent ERCP 2023 LFTs downtrending Continue IV antibiotics for possible cholangitis, mesalamine 800 mg PO TID Spironolactone 25mg daily Continue IV Protonix Hepatitis panel -ve Follow up with [facility]ENDA panel Prelim blood culture negative On hepatic diet We will f/u Plan discussed with patient in which all questions have been answered Case discussed with Dr. Moura Plan discussed with: Patient CARMEN PEDROZA RESIDENT Apr 23, 2025 14:40
[2025-04-24] VITALS (8 sets, daily range): BP systolic 101–131; BP diastolic 63–75; PULSE 55–84; RESP 18–20; TEMP 97.9–99; O2SAT 97–100
--- NOTE | 2025-04-24 11:30 | DVHPN2 ---
Progress Note Date Seen: Apr 24, 2025 Resident Creating Document: CARMEN PEDROZA RESIDENT Medical Necessity Reason Pt with a Central, PICC or Fol: No Subjective Review of Systems Reason of consultation: UC, possible cholangitis Chief complaint: Worsening diarrhea, abdominal distention 69-year-old female presented to the ER with the chief complaint of worsening diarrhea for the past 1 week and abdominal distention for the past 2 months. Patient reports history of ulcerative colitis, takes mesalamine, says that her abdomen has been distended for the past 2 months, and she has been experiencing appetite, early satiety, and her diarrhea worsened for the past week. She is experiencing 6-7 bowel movements every day, her baseline is 2-3 bowel movements, reports spot of red blood when she wipes. She denies fever or chills. Does report abdominal pain which is right-sided. Denies nausea or vomiting. Patient reports having ERCP and colonoscopy in 2023 at [facility] Past medical history: Ulcerative colitis diagnosed 2021, on mesalamine, primary sclerosing cholangitis Past surgical history: Cholecystectomy, ERCP 04/22 - Patient seen and examined in ER. Abdomen mildly tender in epigastrium. Hypoactive. NPO. MRI pending. 04/23 - Patient seen, last BM saturday. abd normoactiv, s/p para 04/24-patient seen and examined. Had 2 bowel movements. Abdomen normoactive. Tolerating diet. Denies nausea vomiting Objective vital signs Vital Sign Date Time Temp Pulse Resp B/P (MAP) Pulse Ox O2 Delivery O2 Flow Rate FiO2 04/24/25 08:00 55 20 97 Room Air* 0 21 04/24/25 05:00 98.5 103/66 (78) 98.5 Total Intake and Output 04/23/25 04/23/25 04/24/25 15:00 23:00 07:00 Intake Total 575 ml 1000 ml Balance 575 ml 1000 ml medications Current Medications Medications Dose Ordered Sig/Elmer Route Start Time Stop Time Status Last Admin Dose Admin Piperacillin Sod/ Tazobactam Sod 100 ml @ 25 mls/hr Q8HR IV 04/21/25 22:00 04/24/25 05:37 25 MLS/HR Mesalamine 800 mg TID PO 04/21/25 22:00 04/24/25 05:37 800 MG Pantoprazole Sodium 40 mg DAILY IV 04/23/25 10:00 04/24/25 09:47 40 MG Morphine Sulfate 1 mg Q2HP PRN IV 04/22/25 14:15 Spironolactone 25 mg DAILY PO 04/23/25 10:00 04/24/25 09:47 25 MG Examination Patient lying in bed, in no acute distress General: Well-built, afebrile, palor, mucosae are moist Cardiovascular: Regular S1 and S2. No murmurs, gallops or rubs. No JVD elevation. Pedal edema. Respiratory: Decreased bilateral breath sounds heard on auscultation, on room air Abdomen: Soft, mildly tender epigastrium, nondistended, normoactiv bowel sounds, no rebound tenderness, no organomegaly, no masses Genitourinary: Deferred MSK/skin: Mobilizes 4 limbs. Skin is dry and warm Neurological: No motor, no sensitive deficits, normal speech. Pupils are isocoric and reactive. Psych/Mental Status: A/Ox3 laboratory and microbiology Laboratory Tests 04/23/25 05:30 04/22/25 05:58 Test 04/23/25 05:30 Range/Units Serum Glucose 84 74-106 mg/dL Microbiology Date/Time Source Procedure Growth Status 04/23/25 10:49 Ascities Fluid Gram Stain Pending Resulted 04/23/25 10:49 Ascities Fluid Body Fluid Culture - Preliminary No growth Resulted 04/21/25 13:06 Voided Urine Urine Culture - Final Complete 04/21/25 11:05 Blood Blood Culture - Preliminary NO GROWTH AFTER 72 HOURS OF INCUBATION. Resulted Labs and/or images reviewed: Labs reviewed by me, Image(s) reviewed by me Problem List/Assessment/Plan Problem List/Assessment/Plan Likely ulcerative colitis flare-up Cirrhosis d/t Primary sclerosing cholangitis Rule out acute cholangitis Liver cyst Cirrhosis secondary to above Ascites s/p para 04/23 Anemia normocytic chronic disease Asymptomatic cystitis Vitamin-D deficiency Severe protein calorie malnutrition Total bilirubin 9.8-9.3 Ammonia less than 10 Alkaline phosphatase 200-190 CT abdomen with IV contrast shows cholecystectomy with mildly dilated CBD and pneumobilia, possible biliary obstruction. Possible cirrhotic liver, splenomegaly, subcentimeter hypodense lesions liver, early SBO possible given borderline dilated loops of small bowel and right lower quadrant MRCP 04/22 shows mid and distal CBD not well seen with diffuse mid and distal CBD wall thickening, differentials include benign infectious versus inflammatory and malignant process. Recommend MRI. 1.4 cm T2 hyperintense right hepatic lobe lesion Last BM 04/21 Plan: Recommendation: Dr. Moura MRI abdomen shows that liver mass is a cyst,Hepatic cirrhosis with sequela of portal hypertension including splenomegaly, moderate ascites, and gastroesophageal varices.Unchanged retroperitoneal lymphadenopathy. IR guided para 2650 ml removed, cloudy yellow, f/u with cytology and labs, body fluid culture prelim negative Obtain records from [facility] for recent ERCP 2023 LFTs downtrending Patient reports having bowel movements, abdomen nontender, normoactive Continue IV antibiotics for possible cholangitis, mesalamine 800 mg PO TID Spironolactone 25mg daily and Lasix 40 mg daily Continue IV Protonix Hepatitis panel -ve Follow up with [facility] panel Prelim blood culture negative On hepatic diet We will f/u Plan discussed with patient in which all questions have been answered Case discussed with Dr. Moura Plan discussed with: Patient CARMEN PEDROZA RESIDENT Apr 24, 2025 11:30
[2025-04-24] MEDS: FUROSEMIDE 20 MG TAB PO ONE (13:46)
[2025-04-24 14:07] LABS: Glucose, Body Fluid 99.0 mg/dL (.)
[2025-04-24] MEDS: GADOTERATE MEG 10 MMOL/20ml INJ (0.5MMOL/ml) IV ONE (21:29)
[2025-04-25] VITALS (8 sets, daily range): BP systolic 96–108; BP diastolic 57–76; PULSE 63–82; RESP 18–20; TEMP 98–99.2; O2SAT 98–99
--- NOTE | 2025-04-25 00:34 | DVHPN2 ---
Subjective The patient seen and examined at bedside. Denies abdominal pain. Reviewed: Care Plan, H&P, Labs, Medications Changes from previous H/P or p: No Changes General: Per HPI Objective Vitals Vital Signs Date Time Temp Pulse Resp B/P (MAP) Pulse Ox O2 Delivery O2 Flow Rate FiO2 04/24/25 21:00 98.3 66 18 107/72 (84) 100 98.3 04/24/25 08:00 Room Air* 0 21 Intake/Output Intake and Output 04/25/25 07:00 Intake Total 998 ml Balance 998 ml Intake Oral 798 ml IV Total 200 ml # Voids 2 # Bowel Movements 2 General Appearance: Alert, Oriented X3, Cooperative, mild distress HEENT: Atraumatic, PERRLA Lungs: Clear to auscultation, Normal air movement Cardiovascular: Normal S1, Normal S2 Abdomen: Normal bowel sounds, Soft, Other (Ascites) Musculoskeletal: Normal sensory function, Normal motor function Skin: Dry, Intact Psych/Mental Status: Mental status NL, Mood NL Medications Current Medications Medications Dose Ordered Sig/Elmer Route Start Time Stop Time Status Last Admin Dose Admin Piperacillin Sod/ Tazobactam Sod 100 ml @ 25 mls/hr Q8HR IV 04/21/25 22:00 04/24/25 21:35 25 MLS/HR Mesalamine 800 mg TID PO 04/21/25 22:00 04/24/25 21:35 800 MG Pantoprazole Sodium 40 mg DAILY IV 04/23/25 10:00 04/24/25 09:47 40 MG Morphine Sulfate 1 mg Q2HP PRN IV 04/22/25 14:15 Spironolactone 25 mg DAILY PO 04/23/25 10:00 04/24/25 09:47 25 MG Furosemide 40 mg DAILY PO 04/25/25 10:00 Laboratory Results Laboratory Tests 04/22/25 05:58 04/23/25 05:30 Urinalysis Test 04/21/25 13:06 Urine Color Dark-orange (Yellow) Urine Clarity Turbid (Clear) H Urine pH 6.0 (5.0-9.0) Urine Specific [place] 1.025 (1.001-1.035) Urine Protein 1+ (Negative) H Urine Ketones Negative (Negative) Urine Blood Negative /uL (Negative) Urine Nitrite 2+ (Negative) H Urine Bilirubin 3+ (Negative) H Urine Urobilinogen 3 mg/dL (Negative) H Urine Leukocyte Esterase 1+ /uL (Negative) Urine RBC 23 /hpf (0 - 4) Urine Microscopic WBC 21 /HPF (0-5) H Urine Squamous Epithelial Cells Few /hpf (<5) Urine Bacteria None seen /hpf (None Seen) Urine Mucus Many (None Seen) Urine Glucose Normal mg/dL (Normal) Microbiology Microbiology Date/Time Source Procedure Growth Status 04/23/25 10:49 Ascities Fluid Gram Stain Pending Resulted 04/23/25 10:49 Ascities Fluid Body Fluid Culture - Preliminary No growth Resulted 04/21/25 13:06 Voided Urine Urine Culture - Final Complete 04/21/25 11:05 Blood Blood Culture - Preliminary NO GROWTH AFTER 72 HOURS OF INCUBATION. Resulted Assessment/Plan Assessment/Plan -ascites -? Cirrhosis. Non alcoholic liver disease -history of ulcerative colitis -severe protein malnutrition -cachexia -portal hypertension Plan: Events: Patient had 2.3 L removed with paracentesis pending. patient now asymptomatic. -continue mesalamine -Waiting for medical records from [facility] . The patient has ERCP at [place] due to cholangitis. -discussion made with the patient regarding medical history. 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
[2025-04-25] MEDS: FUROSEMIDE 20 MG TAB PO SCH (08:46)
[2025-04-25 08:52] LABS: Hematocrit 29.5 % (36.0-46.0); Hemoglobin 10.3 g/dL (12.2-16.2); Mean Corpuscular Hemoglobin 33.0 pg (28.0-32.0); Mean Corpuscular Volume 94.4 fL (80.0-100.0); Nucleated Red Blood Cells % 0.1 %
[2025-04-25 08:56] LABS: Chloride 106 mmol/L (98-107); Potassium 3.7 mmol/L (3.5-5.1); Sodium 139 mmol/L (136-145)
[2025-04-25 08:57] LABS: Anion Gap 9 (5-15); Carbon Dioxide 24 mmol/L (20-31)
[2025-04-25 09:02] LABS: Glucose 82 mg/dL (74-106)
[2025-04-25 09:03] LABS: BUN/Creatinine Ratio 8.5 (10.0-20.0); Blood Urea Nitrogen < 5 mg/dL (9-23); Calcium 8.2 mg/dL (8.7-10.4)
--- NOTE | 2025-04-25 12:49 | DVHPN2 ---
Subjective The patient seen and examined at bedside. Denies abdominal pain. Feel better today. Reviewed: Care Plan, H&P, Labs, Medications Changes from previous H/P or p: No Changes General: Per HPI Objective Vitals Vital Signs Date Time Temp Pulse Resp B/P (MAP) Pulse Ox O2 Delivery O2 Flow Rate FiO2 04/25/25 09:00 99.2 77 20 99/71 (80) 99 99.2 04/25/25 08:00 Room Air* 0 21 Intake/Output Intake and Output 04/25/25 07:00 Intake Total 1898 ml Balance 1898 ml Intake Oral 1598 ml IV Total 300 ml # Voids 5 # Bowel Movements 4 General Appearance: Alert, Oriented X3, Cooperative, mild distress HEENT: Atraumatic, PERRLA Lungs: Clear to auscultation, Normal air movement Cardiovascular: Normal S1, Normal S2 Abdomen: Normal bowel sounds, Soft, Other (Ascites) Musculoskeletal: Normal sensory function, Normal motor function Skin: Dry, Intact Psych/Mental Status: Mental status NL, Mood NL Medications Current Medications Medications Dose Ordered Sig/Elmer Route Start Time Stop Time Status Last Admin Dose Admin Piperacillin Sod/ Tazobactam Sod 100 ml @ 25 mls/hr Q8HR IV 04/21/25 22:00 04/25/25 05:46 25 MLS/HR Mesalamine 800 mg TID PO 04/21/25 22:00 04/25/25 05:46 800 MG Pantoprazole Sodium 40 mg DAILY IV 04/23/25 10:00 04/25/25 08:45 40 MG Morphine Sulfate 1 mg Q2HP PRN IV 04/22/25 14:15 Spironolactone 25 mg DAILY PO 04/23/25 10:00 04/25/25 08:45 25 MG Furosemide 40 mg DAILY PO 04/25/25 10:00 04/25/25 08:46 40 MG Laboratory Results Laboratory Tests 04/25/25 07:44 Chemistry Test 04/25/25 07:44 Calcium Level 8.2 mg/dL (8.7-10.4) L Urinalysis Test 04/21/25 13:06 Urine Color Dark-orange (Yellow) Urine Clarity Turbid (Clear) H Urine pH 6.0 (5.0-9.0) Urine Specific [place] 1.025 (1.001-1.035) Urine Protein 1+ (Negative) H Urine Ketones Negative (Negative) Urine Blood Negative /uL (Negative) Urine Nitrite 2+ (Negative) H Urine Bilirubin 3+ (Negative) H Urine Urobilinogen 3 mg/dL (Negative) H Urine Leukocyte Esterase 1+ /uL (Negative) Urine RBC 23 /hpf (0 - 4) Urine Microscopic WBC 21 /HPF (0-5) H Urine Squamous Epithelial Cells Few /hpf (<5) Urine Bacteria None seen /hpf (None Seen) Urine Mucus Many (None Seen) Urine Glucose Normal mg/dL (Normal) Microbiology Microbiology Date/Time Source Procedure Growth Status 04/23/25 10:49 Ascities Fluid Gram Stain Pending Resulted 04/23/25 10:49 Ascities Fluid Body Fluid Culture - Preliminary No growth Resulted 04/21/25 13:06 Voided Urine Urine Culture - Final Complete 04/21/25 11:05 Blood Blood Culture - Preliminary NO GROWTH AFTER 72 HOURS OF INCUBATION. Resulted Labs and/or images reviewed: Labs reviewed by me Assessment/Plan Assessment/Plan -ascites -? Cirrhosis. Non alcoholic liver disease -history of ulcerative colitis -severe protein malnutrition -cachexia -portal hypertension Plan: Events: Patient had 2.3 L removed with paracentesis pending. patient now asymptomatic. -continue mesalamine -Continue IV antibiotic for possible cholangitis per GI specialist recommendation. -Appreciate GI specialist, Dr Moura input. -Waiting for medical records from [facility] . The patient has ERCP at [place] due to cholangitis. -discussion made with the patient regarding medical history. 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
--- NOTE | 2025-04-25 19:57 | DVHPN2 ---
Progress Note - Dictate Date Seen: Apr 25, 2025 Medical Necessity Reason Pt with a Central, PICC or Fol: No Subjective Patient seen at bedside resting comfortably She denies any abdominal pain Had multiple bowel movements with the lactulose. Tolerating diet. Denies nausea vomiting vital signs Vital Sign Date Time Temp Pulse Resp B/P (MAP) Pulse Ox O2 Delivery O2 Flow Rate FiO2 04/25/25 17:00 99.0 64 20 108/63 (78) 99 99.0 04/25/25 08:00 Room Air* 0 21 Total Intake and Output 04/24/25 04/24/25 04/25/25 15:00 23:00 07:00 Intake Total 318 ml 680 ml 900 ml Balance 318 ml 680 ml 900 ml medications Current Medications Medications Dose Ordered Sig/Elmer Route Start Time Stop Time Status Last Admin Dose Admin Piperacillin Sod/ Tazobactam Sod 100 ml @ 25 mls/hr Q8HR IV 04/21/25 22:00 04/25/25 14:06 25 MLS/HR Mesalamine 800 mg TID PO 04/21/25 22:00 04/25/25 14:06 800 MG Pantoprazole Sodium 40 mg DAILY IV 04/23/25 10:00 04/25/25 08:45 40 MG Morphine Sulfate 1 mg Q2HP PRN IV 04/22/25 14:15 Spironolactone 25 mg DAILY PO 04/23/25 10:00 04/25/25 08:45 25 MG Furosemide 40 mg DAILY PO 04/25/25 10:00 04/25/25 08:46 40 MG objective General: Well-built, afebrile, palor, mucosae are moist Cardiovascular: Regular S1 and S2. No murmurs, gallops or rubs. No JVD elevation. Pedal edema. Respiratory: Decreased bilateral breath sounds heard on auscultation, on room air Abdomen: Soft, non tender, nondistended, normoactiv bowel sounds, no rebound tenderness, no organomegaly, no masses MSK/skin: Mobilizes 4 limbs. Skin is dry and warm Neurological: No motor, no sensitive deficits, normal speech. Pupils are isocoric and reactive. Psych/Mental Status: A/Ox3 laboratory and microbiology Laboratory Tests 04/25/25 07:44 Test 04/25/25 07:44 Range/Units Serum Glucose 82 74-106 mg/dL Problems(with codes): (1) Ascites (2) Colitis (3) Primary sclerosing cholangitis (4) Cirrhosis of liver (5) Intractable abdominal pain (6) Liver failure Prognosis Plan Liver enzymes are trending down, ascitic fluid shows no evidence of SBP Meld score is 16 points which is guarded good prognosis MRI abdomen shows that liver mass is a cyst, hepatitis panel negative Hepatic cirrhosis with sequela of portal hypertension including splenomegaly, moderate ascites, and gastroesophageal varices.Unchanged retroperitoneal lymphadenopathy. IR guided para 2650 ml removed, cloudy yellow, f/u with cytology and labs, body fluid culture prelim negative Obtain records from [facility] for recent ERCP 2023 LFTs downtrending Patient reports having bowel movements, abdomen nontender, normoactive Continue IV antibiotics for possible cholangitis, mesalamine 800 mg PO TID Spironolactone 25mg daily and Lasix 40 mg daily Continue IV Protonix Hepatitis panel -ve BRENDA negative Prelim blood culture negative On hepatic diet; supportive care for now Recommend follow up with [facility] supervisor type bar and segment who have a previous records regarding further management Plan discussed with: Patient, Other (Dr Orta) KELLEY SALINAS MD Apr 25, 2025 19:57
[2025-04-26 01:00] VITALS: BP 101/58; PULSE 68; RESP 18; TEMP 98.5; O2SAT 98
[2025-04-26 05:00] VITALS: BP 96/59; PULSE 61; RESP 16; TEMP 98.9; O2SAT 97
[2025-04-26 05:55] LABS: Hematocrit 29.0 % (36.0-46.0); Hemoglobin 10.2 g/dL (12.2-16.2); Mean Corpuscular Hemoglobin 33.2 pg (28.0-32.0); Mean Corpuscular Volume 94.0 fL (80.0-100.0); Nucleated Red Blood Cells % 0.2 %
[2025-04-26 06:16] LABS: Chloride 105 mmol/L (98-107); Potassium 3.6 mmol/L (3.5-5.1); Sodium 140 mmol/L (136-145)
[2025-04-26 06:18] LABS: Calcium 7.8 mg/dL (8.7-10.4)
[2025-04-26 06:22] LABS: BUN/Creatinine Ratio 8.1 (10.0-20.0); Glucose 84 mg/dL (74-106)
[2025-04-26 06:28] LABS: Blood Urea Nitrogen 5 mg/dL (9-23)
[2025-04-26 06:38] LABS: Anion Gap 9 (5-15); Carbon Dioxide 26 mmol/L (20-31)
[2025-04-26 08:00] VITALS: PULSE 63; PULSE 65; RESP 16; O2SAT 100
[2025-04-26 09:00] VITALS: BP 105/61; PULSE 63; RESP 16; TEMP 98.6; O2SAT 100
--- NOTE | 2025-04-26 11:08 | ECG ---
[facility] Test Date: 2025-04-25 Test Time: 03:23:43 Pat Name: OMAIRA SEAY Department: Respiratoy Room: 0290T B Gender: F [employer] Adjuster: ERUM : 1955 Requested By: CYNTHIA MEEHAN Order Number: [id number] Reading MD: Measurements Intervals [place] Rate: 62 P: 75 IL: 163 QRS: -38 QRSD: 102 T: 34 QT: 418 QTc: 425 Interpretive Statements Sinus rhythm Multiple ventricular premature complexes Left axis deviation Low voltage, extremity leads Please click the below link to view image of tracing.
[2025-04-26 12:49] VITALS: BP 89/55; PULSE 66; RESP 16; TEMP 98.4; O2SAT 100
--- NOTE | 2025-04-26 13:14 | DVHDS2 ---
Discharge Summary Date of Admission Apr 21, 2025 at 17:20 Date of Discharge: Apr 26, 2025 Admitting Diagnosis Possible Cholangitis Labs/Diagnostic Data: Laboratory Results Test 04/26/25 05:30 04/23/25 10:49 04/23/25 05:30 04/22/25 05:58 White Blood Count 3.5 10^3/uL (4.4-10.8) Red Blood Count 3.09 10^6/uL (4.0-5.20) Hemoglobin 10.2 g/dL (12.2-16.2) Hematocrit 29.0 % (36.0-46.0) Mean Corpuscular Volume 94.0 fL (80.0-100.0) Mean Corpuscular Hemoglobin 33.2 pg (28.0-32.0) Mean Corpuscular Hemoglobin Concent 35.3 g/dL (32.0-36.0) Red Cell Distribution Width 13.4 % (11.8-14.3) Platelet Count 128 10^3/uL (140-450) Mean Platelet Volume 8.3 fL (6.9-10.8) Neutrophils (%) (Auto) 56.5 % (37.0-80.0) Lymphocytes (%) (Auto) 29.5 % (10.0-50.0) Monocytes (%) (Auto) 10.2 % (0.0-12.0) Eosinophils (%) (Auto) 2.5 % (0.0-7.0) Basophils (%) (Auto) 1.3 % (0.0-2.0) Neutrophils # (Auto) 2.0 10 ^3/uL (1.6-8.6) Lymphocytes # (Auto) 1.0 10 ^3/uL (0.4-5.4) Monocytes # (Auto) 0.4 10 ^3/uL (0-1.3) Eosinophils # (Auto) 0.1 10 ^3/uL (0-0.8) Basophils # (Auto) 0 10 ^3/uL (0-0.2) Nucleated Red Blood Cells 0.2 % Sodium Level 140 mmol/L (136-145) Potassium Level 3.6 mmol/L (3.5-5.1) Chloride Level 105 mmol/L (98-107) Carbon Dioxide Level 26 mmol/L (20-31) Anion Gap 9 (5-15) Blood Urea Nitrogen 5 mg/dL (9-23) Creatinine 0.62 mg/dL (0.550-1.02) Glomerular Filtration Rate Calc 98 mL/min (>90) BUN/Creatinine Ratio 8.1 (10.0-20.0) Serum Glucose 84 mg/dL (74-106) Calcium Level 7.8 mg/dL (8.7-10.4) Body Fluid Source Ascites Body Fluid pH 8.0 Body Fluid WBC (Manual) 125 CUMM (0-200) Body Fluid RBC (Manual) 259 CUMM (0-2000) Body Fluid Mononuclear Cells 94 % Body Fluid Polymorphonuclear Cells 6 % (0-25) Body Fluid Glucose 99 mg/dL (.) Body Fluid Total Protein 1.8 g/dL (.) Total Bilirubin 7.2 mg/dL (0.2-1.0) Aspartate Amino Transferase (AST) 131 U/L (13-40) Alanine Aminotransferase (ALT) 77 U/L (7-40) Alkaline Phosphatase 159 U/L (46-116) Total Protein 6.5 g/dL (5.7-8.2) Albumin 2.3 g/dL (3.2-4.8) Erythrocyte Sedimentation Rate 91 mm/hr (0-20) Prothrombin Time 13.1 sec (9.3-11.8) Prothrombin Time INR 1.26 (0.9-1.15) Activated Partial Thromboplast Time 33.9 SEC (24.5-34.5) Hemoglobin A1c < 3.8 % A1C (<5.7) Lactic Acid Level 0.9 mmol/L (0.4-2.0) Magnesium Level 2.0 mg/dL (1.6-2.6) Ammonia < 10 umol/L (11-32) C-Reactive Protein High Sensitivity 3.86 mg/dL (<1.0) Triglycerides Level 108 mg/dL (< 150) Cholesterol Level 152 mg/dL (< 200) LDL Cholesterol 88 mg/dL (< 100) HDL Cholesterol 12 mg/dL (40-59) Lipase 47 U/L (12-53) Tumor Marker Alpha Fetoprotein 2.4 ng/mL (0.0-9.2) Vitamin B12 Level > 4000 pg/mL (211-911) Vitamin D 25-Hydroxy 29.1 ng/mL (30.0-100) Thyroid Stimulating Hormone (TSH) 1.94 uIU/mL (0.55-4.78) Test 04/21/25 13:06 04/21/25 10:57 Urine Color Dark-orange (Yellow) Urine Clarity Turbid (Clear) Urine pH 6.0 (5.0-9.0) Urine Specific [place] 1.025 (1.001-1.035) Urine Protein 1+ (Negative) Urine Ketones Negative (Negative) Urine Blood Negative /uL (Negative) Urine Nitrite 2+ (Negative) Urine Bilirubin 3+ (Negative) Urine Urobilinogen 3 mg/dL (Negative) Urine Leukocyte Esterase 1+ /uL (Negative) Urine RBC 23 /hpf (0 - 4) Urine Microscopic WBC 21 /HPF (0-5) Urine Squamous Epithelial Cells Few /hpf (<5) Urine Bacteria None seen /hpf (None Seen) Urine Mucus Many (None Seen) Urine Glucose Normal mg/dL (Normal) Anti-Nuclear Antibody Screen Negative (Negative) Hepatitis A Antibody Total Positive (Negative) Hepatitis B Surface Antigen Negative (Negative) Hepatitis B Surface Antibody Positive (Negative) Hepatitis B Core Total Antibody Negative (Negative) Hepatitis C Antibody Negative (Negative) Other Laboratory Tests 04/26/25 05:30 Brief Hx & Hospital Course: History of Present Illness This is a 69-year-old female with past medical history of ulcerative colitis diagnosed three years ago, also found to have primary sclerosing cholangitis within the same period. She reports chronic abdominal distention and generalized abdominal pain, which worsened before arrival. She states she has intermittent blood in the stool but is a poor historian and unable to provide reliable detail. She only takes mesalamine at home, and medication reconciliation could not be completed. No nausea or vomiting were reported, but history is unreliable. Course of Hospitalization: GI consultation was obtained. IR consultation was obtained with patient having paracentesis. IV antibiotic therapy in the form of Zosyn was started for prophylactic treatment of possible sclerosing cholangitis. Results of paracentesis reveals low likelihood SBP. Patient denies any fevers, chills, body aches or abdominal pain. 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, patient will be discharged with instructions for follow up regarding cirrhosis of the liver with portal hypertension as identified on MRI. Patient was agreeable with discharge plan. All questions answered. Physical examination General: Alert and Oriented x3. No acute distress. Well-nourished. Eyes: EOMI. Anicteric. HENT: Moist mucous membranes. Lungs: Clear to auscultation bilaterally. No accessory muscle use. Cardiovascular: Regular rate and rhythm. No murmur. No JVD. Abdomen: Soft, non-tender and non-distended. No palpable masses. Extremities: No edema. Non-tender. Skin: No rashes or lesions. Warm. Neurologic: No focal neurological deficits. CN II-XII grossly intact, but not individually tested. Psychiatric: Cooperative. Appropriate mood and affect. Total time spent with patient discussing and formulating plan of care: 35 minutes. This medical document was created using an electronic medical record system with eflow dictation system. Although this document has been carefully reviewed, there may still be some phonetic and typographical errors. These areas are purely typographical due to imperfections of the software programs, and do not reflect any compromise in the patient's medical care. Consults/Reason for consult Gastroenterology: Cirrhosis,? Cholangitis Interventional Radiology: Paracentesis Condition at Discharge: Fair Final Diagnosis/Problems List Cirrhosis with ascites -ascites -? Cirrhosis. Non alcoholic liver disease -history of ulcerative colitis -severe protein malnutrition -cachexia -portal hypertension Discharge Disposition: Home Discharge Instruct/Medications Diet: Cardiac 2g Na,low cholest Activity: No Restrictions, As Tolerated Follow Up/Referral: Follow up with adjunct psychology professor and PCP in 1-2 weeks Medications: Continue all home medications Scheduled Mesalamine (Apriso), 4 CAP PO DAILY, (Reported) Miscellaneous Medications Ursodiol (Ursodiol), 300 MG PO, (Reported) 36 Discharge Statement: "Patient was advised to return to the ER or call 911 if any headaches, dizziness, shortness of breath, chest pain, abdominal pain, bleeding, fevers, or worsening of medical condition. Patient was counseled about treatment plan, medications, possible side effects, patientverbalized understanding. All questions were answered to the best of my ability. This discharge took greater then 30 minutes in planning, reviewing documentation, counseling the patient, and discussing with other team members." ASSESSMENT ASSESSMENT Assessment Cirrhosis with ascites Date of Service: Apr 26, 2025 Billing Provider: ANGELA JIMÉNEZ NP Common Visit Codes: 31652-YIO/OBS DISCH DAY >30min ANGELA JIMÉNEZ NP Apr 26, 2025 13:14
== END 2025-04-26 15:37 | disposition home or self-care (01) | DRG 432 ==
LOC: ER 09:06 → OVERFLOW 17:20 → TELE-WESTW 04-22 16:17
PROVIDERS: ADMIT Nurse Practitioner Acute Care; ATTEND Nurse Practitioner Acute Care
PROC: 0W9G3ZZ Drainage of Peritoneal Cavity, Percutaneous Approach (ICD-10-PCS; principal; 2025-04-23)
DX: K74.60 Unspecified cirrhosis of liver (principal); E43 Unspecified severe protein-calorie malnutrition; R64 Cachexia; K83.01 Primary sclerosing cholangitis; R18.8 Other ascites; K76.6 Portal hypertension; K56.7 Ileus, unspecified; D63.8 Anemia in other chronic diseases classified elsewhere; N30.00 Acute cystitis without hematuria; K51.80 Other ulcerative colitis without complications; Z68.1 Body mass index [BMI] 19.9 or less, adult; K76.9 Liver disease, unspecified; E55.9 Vitamin D deficiency, unspecified; K76.89 Other specified diseases of liver; Z88.2 Allergy status to sulfonamides; Z79.899 Other long term (current) drug therapy; Z90.49 Acquired absence of other specified parts of digestive tract
CPT/HCPCS: 36415; 49083; 74177; 74181; 74183; 76705; 76942; 80048; 80053; 80061; 81001; 82105; 82140; 82306; 82607; 83036; 83605; 83690; 83735; 83986; 84443; 85025; 85610; 85652; 85730; 86038; 86141; 86704; 86706; 86708; 86803; 87040; 87071; 87086; 87205; 87340; 89051; 93005; G0378; J2405; J2470; J2543